=== PATIENT | female | born 1950 | race Caucasian/White ===

== ENCOUNTER 2021-05-07 23:19 | Emergency (ER) | payer MEDICARE, SELFPAY ==
[2021-05-07 23:23] VITALS: BP 149/56; PULSE 74; RESP 16; TEMP 36.6; O2SAT 100; BMI 30.2
--- NOTE | 2021-05-07 23:37 | EKG12_ITS ---
Test Reason : DYSRHYTHMIA Blood Pressure : / mmHG Vent. Rate : 067 BPM Atrial Rate : 067 BPM P-R Int : 170 ms QRS Dur : 102 ms QT Int : 400 ms P-R-T Axes : 032 -43 017 degrees QTc Int : 422 ms Normal sinus rhythm Left axis deviation Abnormal ECG Confirmed by AYLIN HAWLEY, KIMBERLY ([id number]), design editor MARILEE NGUYEN ([id number]) on 05/11/2021 8:47:49 AM Referred By: TC Confirmed By:KIMBERLY VIERA MD
--- NOTE | 2021-05-07 23:37 | CT_ITS ---
STUDY: CT BRAIN WITHOUT CONTRAST REASON FOR EXAM: Female, 70 years old. Change in Mental Status RADIATION DOSAGE (If Supplied By Facility): CTDIvol = ( 44.99 ) mGy, DLP = ( 779.24 ) mGycm TECHNIQUE: Transaxial CT imaging of the brain was performed without administration of intravenous contrast material. Individualized dose optimization techniques were used for this CT. COMPARISON: No relevant priors. FINDINGS: There is no intra-/extra-axial fluid collection, mass effect, or midline shift. The pena/white matter junction is preserved. The basal cisterns are patent. Visualized paranasal sinuses and mastoid air cells are clear. The calvarium is intact. CT/Brain/Head without Contrast IMPRESSION: No acute intracranial finding. MRI may be obtained if clinically indicated. Electronically Signed: Dangelo Jurado MD at 1:12 EST Tel , Service support ,
--- NOTE | 2021-05-07 23:38 | EX.ED.VIS.PS ---
HPI HPI - Psych History of Present Illness Chief Complaint: Mental Health Informant: patient and family Narrative Narrative: Patient brought in by her son requesting mental health evaluation. Patient has a history of schizophrenia and OCD. She has problems with her balance and has had multiple falls resulting in a broken back. She is living at her son's home upstairs. She has not been on the stairs alone. He states that she has been doing this as well as hoarding things underneath her bed in her room. He states she was last hospitalized 2 or 3 months ago. She seems to do well for couple weeks and then slowly her behavior deteriorates again. He is concerned that she is not taking her medication. [facility] Medical History Depression Diabetes Herpes History of diverticulitis Kidney disease OCD (obsessive compulsive disorder) Osteoporosis Schizophrenia Home Medications aripiprazole 5 mg PO DAILY 05/07/21 [History Last Taken Unknown] escitalopram oxalate [Lexapro] 10 mg PO DAILY 05/07/21 [History Last Taken Unknown] risperidone 0.5 mg PO BID 05/07/21 [History Last Taken Unknown] trazodone 50 mg PO QHS 05/07/21 [History Last Taken Unknown] trihexyphenidyl 5 mg PO DAILY 05/07/21 [History Last Taken Unknown] Allergy/AdvReac Type Severity Reaction Status Date / Time No Known Allergies Allergy Verified 05/07/21 23:23 Social History Smoking Status: Never smoker ROS ROS ED Constitutional Constitutional ED: Denies chills or fever(s) Eyes Eyes: Denies change in vision ENT ENT ED: Denies sore throat Cardiovascular Cardiovascular: Denies chest pain Respiratory/Chest Respiratory/Chest: Denies cough or dyspnea Gastrointestinal Gastrointestinal: Denies abdominal pain, diarrhea, nausea or vomiting Genitourinary Genitourinary ED: Denies dysuria Musculoskeletal Musculoskeletal: Reports back pain Integumentary Denies rash Neurologic Neurologic: Denies headache(s), paresthesias or weakness Psychiatric Psychiatric: Denies anxiety, depression, suicidal ideation or suicidal thoughts Allergic/Immunologic Allergic/Immunologic ED: Denies urticaria EXAM Physical Exam Const Vital Signs: 05/07/21 23:23 05/08/21 03:13 Temperature 97.8 F Temperature Source Oral Pulse Rate 74 Respiratory Rate 16 16 Blood Pressure 149/56 H Blood Pressure Mean 87 Pulse Ox 100 Oxygen Delivery Method Room Air Room Air Positive well nourished and well developed General Appearance ED: well developed HEENT Reports normocephalic and head/scalp atraumatic Eyes PERRL and EOMs intact bilaterally Neck supple Chest Wall inspection of chest normal and palpation of chest normal Resp normal respiratory effort and clear to auscultation bilaterally Cardio regular rate and regular rhythm GI normal to inspection, nondistended, normoactive bowel sounds Palpation: soft Extremity normal to inspection Neuro oriented x3 and no sensory deficits noted Sensorium / Orientation: alert Motor Exam: strength 5/5 throughout Psych mental status grossly normal Activity / Motor Behavior: avoids eye contact Speech: soft Mood & Affect: depressed Skin no rashes or lesions noted MDM MDM MDM Narrative Medical decision making narrative: Geropsych work-up undertaken. Lab Data Attestation: I reviewed the patient's lab results. Labs: Laboratory Results - last 24 hr 05/07/21 05/07/21 05/07/21 23:34 23:34 23:34 WBC 9.9 RBC 4.29 Hgb 13.7 Hct 41.0 MCV 95.6 MCH 31.9 MCHC 33.4 RDW Std Deviation 42.1 RDW Coeff of Lucius 12.2 Plt Count 212 MPV 11.0 Immature Gran % (Auto) 0.200 Neut % (Auto) 53.8 Lymph % (Auto) 33.0 [place] % (Auto) 9.3 Eos % (Auto) 3.1 Baso % (Auto) 0.6 Absolute Neuts (auto) 5.3 Absolute Lymphs (auto) 3.25 Nucleated RBC % 0 Differential Comment SCANNED Platelet Estimate ADEQUATE Sodium Cancelled Potassium Cancelled Chloride Cancelled Carbon Dioxide Cancelled Anion Gap Cancelled BUN Cancelled Creatinine Cancelled Estim Creat Clear Calc Cancelled Est GFR (MDRD) Af Amer Cancelled Est GFR (MDRD) Non-Af Cancelled BUN/Creatinine Ratio Cancelled Glucose Cancelled Calcium Cancelled Total Bilirubin Cancelled Direct Bilirubin Cancelled AST Cancelled ALT Cancelled Alkaline Phosphatase Cancelled Total Protein Cancelled Albumin Cancelled Globulin Cancelled Urine Color Urine Clarity Urine pH Ur Specific [place] Urine Protein Urine Glucose (UA) Urine Ketones Urine Occult Blood Urine Nitrite Urine Bilirubin Urine Urobilinogen Ur Leukocyte Esterase Urine RBC Urine WBC Ur Squamous Epith Cells Urine Bacteria Urine Mucus Urine Opiates Screen Urine Methadone Screen Ur Barbiturates Screen Ur Phencyclidine Scrn Ur Amphetamines Screen U Methamphetamin-MDMA U Benzodiazepines Scrn Urine Cocaine Screen U Cannabinoids Screen Ur Drug Screen Comment Ethyl Alcohol Cancelled 05/08/21 05/08/21 05/08/21 00:19 00:19 00:39 WBC RBC Hgb Hct MCV MCH MCHC RDW Std Deviation RDW Coeff of Lucius Plt Count MPV Immature Gran % (Auto) Neut % (Auto) Lymph % (Auto) [place] % (Auto) Eos % (Auto) Baso % (Auto) Absolute Neuts (auto) Absolute Lymphs (auto) Nucleated RBC % Differential Comment Platelet Estimate Sodium 143 Potassium 4.2 Chloride 109 H Carbon Dioxide 29.0 Anion Gap 5 BUN 25 H Creatinine 1.27 H Estim Creat Clear Calc 35.07 Est GFR (MDRD) Af Amer 54 L Est GFR (MDRD) Non-Af 44 L BUN/Creatinine Ratio 19.7 Glucose 100 Calcium 9.5 Total Bilirubin 0.50 Direct Bilirubin 0.14 AST 12 L ALT 16 Alkaline Phosphatase 58 Total Protein 7.6 Albumin 3.3 Globulin 4.3 H Urine Color Urine Clarity Urine pH Ur Specific [place] Urine Protein Urine Glucose (UA) Urine Ketones Urine Occult Blood Urine Nitrite Urine Bilirubin Urine Urobilinogen Ur Leukocyte Esterase Urine RBC Urine WBC Ur Squamous Epith Cells Urine Bacteria Urine Mucus Urine Opiates Screen NEGATIVE Urine Methadone Screen NEGATIVE Ur Barbiturates Screen NEGATIVE Ur Phencyclidine Scrn NEGATIVE Ur Amphetamines Screen NEGATIVE U Methamphetamin-MDMA NEGATIVE U Benzodiazepines Scrn NEGATIVE Urine Cocaine Screen NEGATIVE U Cannabinoids Screen NEGATIVE Ur Drug Screen Comment Ethyl Alcohol < 3.0 05/08/21 00:39 WBC RBC Hgb Hct MCV MCH MCHC RDW Std Deviation RDW Coeff of Lucius Plt Count MPV Immature Gran % (Auto) Neut % (Auto) Lymph % (Auto) [place] % (Auto) Eos % (Auto) Baso % (Auto) Absolute Neuts (auto) Absolute Lymphs (auto) Nucleated RBC % Differential Comment Platelet Estimate Sodium Potassium Chloride Carbon Dioxide Anion Gap BUN Creatinine Estim Creat Clear Calc Est GFR (MDRD) Af Amer Est GFR (MDRD) Non-Af BUN/Creatinine Ratio Glucose Calcium Total Bilirubin Direct Bilirubin AST ALT Alkaline Phosphatase Total Protein Albumin Globulin Urine Color Yellow Urine Clarity Clear Urine pH 5.0 Ur Specific [place] 1.020 Urine Protein 15 H Urine Glucose (UA) Normal Urine Ketones Negative Urine Occult Blood 10 H Urine Nitrite Negative Urine Bilirubin Negative Urine Urobilinogen Normal Ur Leukocyte Esterase 100 H Urine RBC 0 SEEN Urine WBC 0-5 SEEN Ur Squamous Epith Cells 0 SEEN Urine Bacteria RARE Urine Mucus 0 SEEN Urine Opiates Screen Urine Methadone Screen Ur Barbiturates Screen Ur Phencyclidine Scrn Ur Amphetamines Screen U Methamphetamin-MDMA U Benzodiazepines Scrn Urine Cocaine Screen U Cannabinoids Screen Ur Drug Screen Comment Ethyl Alcohol Radiography Diagnostic Testing: Clinical Impression(s) from Imaging Studies Brain CT 05/07/21 23:37 IMPRESSION: No acute intracranial finding. MRI may be obtained if clinically indicated. Electronically Signed: Dangelo Jurado MD at 1:12 EST Tel , Service support , EKG Initial EKG: Attestation: I personally reviewed and interpreted this EKG as follows: Interpretation: Sinus Rhythm (Sinus at 67 with no acute ischemia.) Treatment and Re-Evaluation Comments:: Lab work and urinalysis unremarkable. EKG reveals no ischemia. Head CT reveals no acute findings. Patient discussed with crisis. They spoke with the patient on the phone as well as with the patient's son. Apparently she has been hoarding her dirty underwear. She will soil herself and then remain in the same underwear for extended periods of time. She will then wash them out the sink but the back on. There is concern on her ability to care for herself. They were able to get patient placed and accepted at [facility]. Discharge Plan Triage Chief Complaint: Mental Health ED Provider: Farrah Oseguera Dx/Rx/DC Orders Clinical Impression: Schizophrenia Prescriptions: No Action trazodone 50 mg Tablet 50 mg PO QHS RF: 0 trihexyphenidyl 5 mg Tablet 5 mg PO DAILY RF: 0 risperidone 0.5 mg Tablet 0.5 mg PO BID RF: 0 escitalopram oxalate [Lexapro] 10 mg Tablet 10 mg PO DAILY RF: 0 aripiprazole 5 mg Tablet 5 mg PO DAILY RF: 0 Referrals: GINO PAYNE [Other] Disposition Disposition: Psychiatric Hospital or Unit Discharge Location: [facility]
[2021-05-07 23:49] LABS: Absolute Lymphocyte Count 3.25 X10^3/uL (0.83-4.51); Absolute Neutrophil Count 5.3 X10^3/uL (2.0-7.7); Basophil# 0.06 X10^3/uL; Basophil% 0.6 % (0-1); Eosinophil# 0.31 X10^3/uL; Eosinophils% 3.1 % (0-5); Hemoglobin 13.7 g/dL (12.0-15.0); Lymphocyte # 3.25 X10^3/ul (0.83-4.51); Mean Corp Hgb Conc 33.4 g/dL (32-36); Mean Corpuscular Hgb 31.9 pg (27.0-32.0); Mean Corpuscular Volume 95.6 fL (81-99); Monocyte# 0.92 X10^3/uL; Monocyte% 9.3 % (0-10); NRBC Flagged by Analyzer 0 % (0-5); Neutrophil % 53.8 % (47-70); POSITIVE COUNT YES; Platelet Count 212 K/mm3 (150-450); RBC Distribution Width CV 12.2 % (11.6-14.6); RBC Distribution Width SD 42.1 fl (35.1-43.9); Red Blood Count 4.29 M/mm3 (4.2-5.4); White Blood Count 9.9 K/mm3 (4.4-11.0)
[2021-05-07 23:53] LABS: Differential Indicated SCAN CRITERIA MET
[2021-05-08 00:12] LABS: Differential Comment SCANNED; Platelet Estimate ADEQUATE (ADEQ)
[2021-05-08 00:39] LABS: Alcohol, Blood (Medical)-Serum < 3.0 mg/dL
[2021-05-08 00:41] LABS: AST(SGOT) 12 U/L (15-37); Alanine Aminotransfer ALT/SGPT 16 U/L (13-56); Albumin, Serum 3.3 g/dL (3.2-5.0); Alkaline Phosphatase 58 U/L (45-117); Anion Gap 5 (5-15); BUN 25 mg/dL (7-18); BUN/Creat Ratio 19.7 RATIO (10-20); Bilirubin, Direct 0.14 mg/dL (0.00-0.30); Calcium,Total 9.5 mg/dL (8.5-10.1); Chloride 109 mmol/L (98-107); Creatinine, Serum 1.27 mg/dL (0.55-1.02); EST Glomerular Filtration Rate 44 mL/min (>60); Est Glom Filt Rate - Afr Amer 54 mL/min (>60); Estimated Creatinine Clearance 35.07 ml/min; Globulin 4.3 g/dL (2.2-4.2); Glucose 100 mg/dL (74-106); Potassium 4.2 mmol/L (3.5-5.1); Protein, Total 7.6 g/dL (6.4-8.2); Sodium Level 143 mmol/L (136-145)
[2021-05-08 00:48] LABS: Color, Urine Yellow (Yellow); Glucose, Dipstick Normal (Normal); Ketone-Dipstick Negative (Negative); Leukocyte Esterase-Dipstick 100 /ul (Negative); Mucous, Urine 0 SEEN /hpf (<or=2+); Nitrite-Dipstick Negative (Negative); Occult Blood-Urine 10 /ul (Negative); Protein-Dipstick 15 mg/dl (Negative); Red Blood Cells-Urine 0 SEEN /hpf (0-5); Squamous Epithelial Cells - UA 0 SEEN /hpf (5-10); Urine Bilirubin Dipstick Negative (Negative); Urine Clarity Clear (Clear); Urine Urobilinogen Normal (Normal)
[2021-05-08 01:06] LABS: Amphetamine Urine VISTA NEGATIVE (<1000 ng/mL); Barbiturate Urine VISTA NEGATIVE (< 200 ng/mL); Benzodiazepine Urine VISTA NEGATIVE (< 200 ng/mL); Cocaine Urine VISTA NEGATIVE (< 300 ng/mL); Ecstacy Urine VISTA NEGATIVE (< 500 ng/mL); Methadone Urine VISTA NEGATIVE (< 300 ng/mL); PCP Urine VISTA NEGATIVE (< 25 ng/mL); THC Urine VISTA NEGATIVE (< 50 ng/mL); Vista UDS pH Range 5
[2021-05-08 01:13] LABS: White Blood Cells 0-5 SEEN /hpf (0-5)
[2021-05-08 01:14] LABS: Bacteria RARE /hpf (None Seen)
[2021-05-08] MEDS: LORazepam 1 MG Tablet PO (02:57)
[2021-05-08 03:13] VITALS: RESP 16
--- NOTE | 2021-05-08 03:13 | ED.RN ---
Son states he would like someone from accepting facility to call him and also states that he took his mother's rings home with him.
--- NOTE | 2021-05-08 03:26 | ED.RN ---
PATIENT IS PENDING AT [facility]
--- NOTE | 2021-05-08 04:14 | ED.RN ---
CALLED FOR A RIDE THE ETA WILL BE [phone]
--- NOTE | 2021-05-08 04:17 | ED.RN ---
Domenico, son, called and will be here between 9-10am to sign papers, as POA. He has phone number for [facility] and is aware we are sending her via pink slip.
[2021-05-08 04:50] VITALS: BP 140/70; PULSE 87; RESP 17; TEMP 36.6; O2SAT 98
== END 2021-05-08 06:30 ==
PROVIDERS: Emergency Provider Emergency Medicine
DX: F20.9 Schizophrenia, unspecified (principal); F42.9 Obsessive-compulsive disorder, unspecified; R29.6 Repeated falls; E11.9 Type 2 diabetes mellitus without complications; F32.A Depression, unspecified; Z79.899 Other long term (current) drug therapy
CPT/HCPCS: 70450; 80048; 80076; 80307; 81001; 82077; 85025; 87426; 93005; 99285; A4216